=== PATIENT | female | born 1945 | race Caucasian/White ===

== ENCOUNTER 2021-10-21 07:38 | Day surgery (SDC) | payer OTHER ==
[2021-10-15 11:31] VITALS: BMI 28.2
[2021-10-21 09:30] VITALS: BP 128/67; PULSE 63; TEMP 97.8
== END 2021-10-21 10:10 | disposition home or self-care (01) ==
LOC: FASU-ENDO 07:38
PROVIDERS: ATTEND Internal Medicine Gastroenterology
PROC: 0DJD8ZZ Inspection of Lower Intestinal Tract, Via Natural or Artificial Opening Endoscopic (ICD-10-PCS; principal; 2021-10-21 08:58)
DX: Z12.11 Encounter for screening for malignant neoplasm of colon (principal); K57.30 Diverticulosis of large intestine without perforation or abscess without bleeding